=== PATIENT | female | born 1985 ===

== ENCOUNTER 2017-01-19 00:35 | Emergency (ER) | payer OTHER ==
[2017-01-19 00:43] VITALS: BMI 30.9
[2017-01-19 00:54] LABS: RBC URINE < 1 /hpf (0-3); URINE BILIRUBIN NEGATIVE (NEGATIVE); URINE BLOOD NEGATIVE (NEGATIVE); URINE COLOR Straw (YELLOW); URINE GLUCOSE (UA) NORMAL (Normal); URINE KETONE NEGATIVE (NEGATIVE); URINE LEUKOCYTE ESTERASE NEG Leu/uL (Negative); URINE PROTEIN NEGATIVE (NEGATIVE); URINE UROBILINOGEN NORMAL mg/dL (0.2-1.0); WBC URINE < 1 /hpf (0-5)
--- NOTE | 2017-01-19 01:26 | OBDCSUM ---
Datetime: 01/19/2017 01:25 Discharged to, Provider: Home Follow up at, Provider: 1friday Follow up in weeks, Provider: clinic Disch Activity Restrictions: No sexual activity; Nothing in vagina - [place], tampons, douche Discharge Comment, Provider: dc home lbor ins given po hyr f/u in cliic in 1 day Discharge Diagnosis Prov Other: 38+week vb
--- NOTE | 2017-01-19 01:27 | OBHP ---
Datetime: 01/19/2017 01:23 IP Adm Impression: Term, intrauterine IP Chief Complaint Other: vaginal spotting IP Admit Plan: Discharge home Admit Comment, IP Provider: at 38.6 weeks came with vahginal spotting x 2 in the evening, no vb now, no ctxs, lof,+fm obhx 3 x , 1 x sab pmh den med pnv all nkda psh de soch de ve closed ua neg a/p at 38+weeks r/o labor dc home lbor ins given po hyr f/u in cliic in 1 day Pelvic Type - PN: Adequate Extremities - PN: Normal Abdomen - PN: Normal Back - PN: Normal Breast - PN: Normal Lungs - PN: Normal Heart - PN: Normal Thyroid - PN: Normal Neurologic - PN: Normal HEENT - PN: Normal General - PN: Normal FHR - Baseline A Provider: 140 Contraction Comments Provider: occ Vital Signs Provider: Reviewed; Within Normal Limits NICHD Variability Prov Fetus A: Moderate 6-25bpm NICHD Accel Fetus A IP Provider: 15X15 FHR Category Provider Fetus A: Category I Dilatation, Provider: 0 Effacement, Provider: 50 Station, Provider: -3 Genitourinary Exam: Normal DTRs - PN: Normal
[2017-01-19 05:56] VITALS: BP 107/70; PULSE 72
== END 2017-01-19 01:35 | disposition home or self-care (01) ==
LOC: C.EROB 00:35
DX: O26.853 Spotting complicating pregnancy, third trimester (principal); Z3A.38 38 weeks gestation of pregnancy

== ENCOUNTER 2017-01-20 05:45 | Inpatient (IN) | payer MEDICAID, OTHER ==
[2017-01-20] MEDS ORDERED: Penicillin G 5 Million Unit Vial IVPB ONE ×2 (06:38→06:42)
[2017-01-20 06:39] VITALS: BMI 28.3
[2017-01-20] MEDS ORDERED: Lactated Ringer's 1,000 ML IV SCH (06:45)
[2017-01-20] MEDS ORDERED: Oxytocin 20 units in LR 2,000 ML IV ONE (07:02)
[2017-01-20] MEDS ORDERED: Oxycodone/Acetaminophen 5/325 mg Tab PO PRN (07:33)
--- NOTE | 2017-01-20 07:33 | OBADHP ---
Datetime: 01/20/2017 06:53 Admit Comment, IP Provider: 31 y.o. P4, OMI 01/27/17, EGA 39 weeks c/o Ctx - onset 0300 hours and va ginal spotting at that time. (+) AFM; denies LOF. course: NDCA - noted for anemia P OB: x 4: first 3 approx 7 lb, all girls, 2000, 2001, 2002; last one 7lb. 2007, male, 7lb. 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 x 7 years. Lives with and childr en; Unemployed Fam Hx: Mother alive 56 y.o. no med issues. Father alive 59 y.o. HTN, DM. No known fam h/o cance r P.E.: as above. WD in pain with contractions. Awake, alert, oriented to time, person and place. P leasant and cooperative. at her side Assessment: 31 y.o. P4, 39 weeks, near end of Stage 1 of labor. GBS (+). Deceleration c/w labor pr ogress. FHR has recovered - Category 1 tracing. Clinically stable. Plan: 1) Admit 2) NPO 3) IVFs 4) Admission labs 5) Cointinuous EFM 6) Penicillin 7) Anticipate vaginal delivery Pelvic Type - PN: Adequate Extremities - PN: Normal Abdomen - PN: Normal Back - PN: Normal Breast - PN: Not Done Lungs - PN: Normal Heart - PN: Normal Thyroid - PN: Not Done Neurologic - PN: Normal HEENT - PN: Normal General - PN: Normal Presentation-Admit: Vertex FHR - Baseline A Provider: 140 Membranes, Provider: Intact Contraction Comments Provider: 2-5 Comments, ACOG Physical Exam: Abdomen: Obese. Gravid Firm with contractions All other systems reviewed and are negative Gestation - Est Wks by US: 39.0 IP Hx Assessment: The History has been Reviewed and is Current Vital Signs Provider: Reviewed; Within Normal Limits IP Chief Complaint: Uterine contractions NICHD Variability Prov Fetus A: Moderate 6-25bpm FHR Category Provider Fetus A: Category I NICHD Decel Fetus A IP Provider: Variable Dilatation, Provider: 10 Effacement, Provider: 100 Station, Provider: 1 Genitourinary Exam: Normal DTRs - PN: Not Done EGA AdmitDate IP: 39.0 IP Adm Impression: Term, intrauterine ; Active labor IP Admit Plan: Admit to unit; Initiate labor protocol Datetime: 01/19/2017 01:23 IP Chief Complaint Other: vaginal spotting NICHD Accel Fetus A IP Provider: [id number]
--- NOTE | 2017-01-20 07:38 | OBDS ---
DELIVERY PERSONNEL Delivery Doctor: yovani Cardozaulator: Nestor Roca RN MATERNAL INFORMATION Delivery Anesthesia: None Medications in Delivery: pitocin 20 Placenta Cultured: No Maternal Complications: None Provider Comments: Uncomplicated vaginal delivery of live female infant, ALDEN position, weight 7lb 7o z, 's 9/9 after SROM 0702 hours with thick meconium. Cord doubly clamped and cut; handed to packager head in attendance. Cord pH sample obtained and to lab. Spontaneous delivery of placenta -grossly intact; 3 vessel cord. Repair of laceration as above. Hemostasis assured. on mother's abdomen - both in stable condition LABOR SUMMARY EDC: 01/27/2017 00:00 No. Babies in Womb: 1 Attempted: No Labor Anesthesia: None LABOR INFORMATION Onset of Labor: 01/20/2017 04:00 Oxytocin: N/A Group B Beta Strep: Positive Steroids Given: None Reason Steroids Not Administered: Not Applicable MEMBRANES Membranes Rupture Method: Spontaneous Rupture of Membranes: 01/20/2017 06:46 Length of Rupture (hrs): 0.32 Amniotic Fluid Color: Clear Amniotic Fluid Amount: Moderate Amniotic Fluid Odor: Normal STAGES OF LABOR Stage 3 hrs: 0 Stage 3 min: 16 Total Time in Labor hrs: 3 Total Time in Labor min: 21 VAGINAL DELIVERY Episiotomy: None Laceration Extension: First Degree Laceration Type: Perineal Laceration Repair: Yes Laceration Repair Note: 2-0 chromic - routine fashion Initial Vag Sponge Count: 10 Final Vag Sponge Count: 10 Initial Vag Sharps Count: 1 Final Vag Sharps Count: 1 Sponge Count Correct: Yes Sharps Count Correct: Yes BABY A INFORMATION Infant Delivery Date/Time: 01/20/2017 07:05 Method of Delivery: Vaginal Born in Route : No : N/A Forceps: N/A Vacuum Extraction: N/A Shoulder Dystocia : No SHOULDER DYSTOCIA BABY A Infant Delivery Date/Time: 01/20/2017 07:05 PRESENTATION/POSITION BABY A Presentation: Cephalic Cephalic Presentation: Vertex Vertex Position: Right Occipital Anterior PLACENTA INFORMATION BABY A Placenta Delivery Time : 01/20/2017 07:21 Placenta Method of Delivery: Spontaneous Placenta Status: Delivered SCORES BABY A Heart Rate 1 min: >100 bpm Resp Effort 1 min: Good Cry Reflex Irritability 1 min: Cough or Sneeze or Pulls Away Muscle Tone 1 min: Active Motion Color 1 min: Body [place], Extremities Blue Resuscitation Effort 1 min: Tactile Stimulation SCORE 1 MIN: 9 Heart Rate 5 min: >100 bpm Resp Effort 5 min: Good Cry Reflex Irritability 5 min: Cough or Sneeze or Pulls Away Muscle Tone 5 min: Active Motion Color 5 min: Body [place], Extremities Blue SCORE 5 MIN: 9 INFORMATION BABY A Gestational Age at Delivery: 39.0 Gestational Status: Term Infant Outcome : Liveborn Condition : Stable Sex: Female IDENTIFICATION/MEDS BABY A ID Band Number: [id number] ID Band Location: Left Leg; Left Arm Sensor Applied: Yes Sensor Number: [id number] Sensor Location : Cord Clamp WEIGHT/LENGTH BABY A Infant Birthweight (gms): 3375 Weight (lb): 7 Infant Weight (oz): 7 Length Inches: 19.50 Length cms: 49.5 CORD INFORMATION BABY A No. Cord Vessels: 3 Nuchal Cord : N/A Cord Blood Taken: Yes Suction: None; Mouth ASSESSMENT BABY A Infant Complications: None Physical Findings at Delivery: Within Normal Limits Infant Respirations: Appears Normal Svp Of Digital/ALS Called : No Care By: dr escoto Transferred To: Remains with Mother
--- NOTE | 2017-01-20 07:59 | OBPN ---
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 With FOB x 3 years. Unemployed Fam Hx: Mother alive 61 y.o. - no med issues. Father age 50+ - cirrhosis of the liver; h /o EtOH abuse. No knonw fam h/o cancer Datetime: 01/20/2017 06:53 Membranes, Provider: Intact Contraction Comments Provider: 2-5 FHR - Baseline A Provider: 140 Gestation - Est Wks by US: 39.0 Presentation-Admit: Vertex Vital Signs Provider: Reviewed; Within Normal Limits FHR Category Provider Fetus A: Category I NICHD Variability Prov Fetus A: Moderate 6-25bpm Dilatation, Provider: 10 Effacement, Provider: 100 Station, Provider: 1 NICHD Decel Fetus A IP Provider: Variable Datetime: 01/19/2017 01:23 NICHD Accel Fetus A IP Provider: [id number]
[2017-01-20 08:26] LABS: BASO % 0.1 % (0.0-2.0); LYMPH # 1.7 K/uL (1.0-4.3); LYMPH % 10.6 % (20.0-40.0); MEAN CELL VOLUME 89.9 fL (81.0-99.0); MEAN CORPUSCULAR HEMOGLOBIN 30.4 pg (27.0-31.0); MEAN CORPUSCULAR HGB CONC 33.8 g/dL (33.0-37.0); MEAN PLATELET VOLUME 9.7 fL (7.2-11.7); MONO # 0.8 K/uL (0.0-0.8); MONO % 5.3 % (0.0-10.0); RED CELL DISTRIBUTION WIDTH 16.9 % (11.5-14.5); WHITE BLOOD COUNT 15.6 K/uL (4.8-10.8)
[2017-01-20 08:41] LABS: RBC URINE 2349 /hpf (0-3); URINE BACTERIA RARE (<OCC); URINE BILIRUBIN NEGATIVE (NEGATIVE); URINE BLOOD 3+ (NEGATIVE); URINE COLOR Amber (YELLOW); URINE GLUCOSE (UA) NORMAL (Normal); URINE KETONE NEGATIVE (NEGATIVE); URINE LEUKOCYTE ESTERASE 2+ Leu/uL (Negative); URINE PROTEIN 2+ mg/dL (NEGATIVE); URINE UROBILINOGEN NORMAL mg/dL (0.2-1.0); WBC URINE 58 /hpf (0-5)
[2017-01-20 09:02] LABS: ALB/GLOB RATIO 0.9 (1.0-2.1); ALKALINE PHOSPHATASE 212 U/L (38-126); ALT/SGPT 30 U/L (9-52); AST/SGOT 22 U/L (14-36); BILIRUBIN,TOTAL 0.5 mg/dL (0.2-1.3); BLOOD UREA NITROGEN 7 mg/dL (7-17); CALCIUM 8.5 mg/dl (8.6-10.4); CARBON DIOXIDE 20 mmol/L (22-30); CHLORIDE 107 mmol/L (98-107); GFR AFRICAN-AMERICAN > 60; GLUCOSE,RANDOM 86 mg/dL (65-105); POTASSIUM 3.3 mmol/L (3.6-5.2); SODIUM 136 mmol/L (132-148); TOTAL PROTEIN 7.8 g/dL (6.3-8.3)
[2017-01-20] MEDS: Benzocaine/Menthol 20%-0.5% Topical Spray (60 ml) TOP PRN (09:41)
[2017-01-21 08:15] LABS: BASO % 0.1 % (0.0-2.0); EOS % 0.3 % (0.0-4.0); HEMATOCRIT 33.5 % (34.0-47.0); LYMPH # 2.1 K/uL (1.0-4.3); LYMPH % 22.2 % (20.0-40.0); MEAN CELL VOLUME 89.4 fL (81.0-99.0); MEAN CORPUSCULAR HEMOGLOBIN 30.6 pg (27.0-31.0); MEAN CORPUSCULAR HGB CONC 34.2 g/dL (33.0-37.0); MEAN PLATELET VOLUME 9.2 fL (7.2-11.7); MONO # 0.7 K/uL (0.0-0.8); MONO % 7.5 % (0.0-10.0); NRBC % 0.1 % (0.0-2.0); WHITE BLOOD COUNT 9.7 K/uL (4.8-10.8)
[2017-01-21] MEDS ORDERED: Influenza Vaccine 60 mcg/0.5 mL SYR (4YR UP) IM ONE (08:17)
--- NOTE | 2017-01-21 19:56 | OBPPN ---
Datetime: 01/21/2017 11:07 PP Pain Prov: Within normal limits PP Nausea Prov: Denies PP Flatus Prov: No PP BM Prov: No PP Heart Prov: Normal PP Lungs Prov: Normal PP Abdomen/Uterus Prov: Normal PP Lochia Prov: Normal PP CVA Tenderness Prov: Normal PP Extremities Prov: Normal PP Progress Prov: Normal PP Impression Prov: Normal progression PP Plan Prov: Continue present management PP Progress Note Prov: Patient seen and examined at bedside. Per nursing no acute events overnight. Patient is doing well, pain is controlled. Lochia is moderate. Ambulating and tolerating diet. Urinat ing without difficulty. Denies passing flatus or BM. Breast and bottle feeding. Denies headaches, diz ziness, cp, palpitations, sob, urinary symptoms. VS: 90/56 66 98.1 Gen: AAOx3, NAD Abd: Soft, fundus firm below umbilicus Ext: No clubbing, cyanosis, edema; no calf tenderness Labs: 15.6>12.2/36.0<189 9.7>11.5/33.5<191 O positive Rubella immune A/P: 31 year old at 39w0d s/p PPD#1 -Stable, afebrile -Pain control - motrin prn -Encourage ambulation and hydration -Encourage breast feeding -Continue routine care -Anticipate d/c home tomorrow -Plan d/w attending Chantell Jamil DO PGY-1 Patient examined.agree with resident exam, assessment and plan Vital Signs Provider PP: Reviewed
--- NOTE | 2017-01-22 08:53 | OBPPN ---
Datetime: 01/22/2017 08:50 PP Pain Prov: Within normal limits PP Nausea Prov: Denies PP Flatus Prov: Yes PP BM Prov: No PP Breasts Prov: Normal PP Heart Prov: Normal PP Lungs Prov: Normal PP Abdomen/Uterus Prov: Normal PP Lochia Prov: Normal PP CVA Tenderness Prov: Normal PP Extremities Prov: Normal PP Progress Prov: Normal PP Impression Prov: Normal progression PP Plan Prov: Continue present management PP Progress Note Prov: s: no c/o. denies perineal pain i: s/p doing well p: d/c home perineal care continue pnv benefits of reinforced good nutrition IP PP Procedures: None
[2017-01-22 08:54] VITALS: PULSE 66; RESP 18; O2SAT 98
--- NOTE | 2017-01-22 08:56 | OBDCSUM ---
Datetime: 01/22/2017 08:29 Discharged to, Provider: Home Follow up at, Provider: ROSY Disch Instr Activity: Normal activity; May Shower Disch Instr Diet: Regular Discharge Diet restrict Prov: none Discharge Instructions, Provider: Routine instructions given Discharge Diagnosis, Provider: Term Delivered Discharge Time: 01/22/2017 11:00 Follow up in weeks, Provider: 6 weeks Disch Referrals: None Discharge Instruct Comment, Prov: pp Disch Activity Restrictions: No sexual activity; Nothing in vagina - [employer], tampons, douche Discharge Comment, Provider: see pp note Contraception after Delivery: Undecided
[2017-01-22] MEDS: Benzocaine/Menthol 20%-0.5% Topical Spray (60 ml) TOP PRN (09:00)
[2017-01-22 17:43] VITALS: BP 95/56; TEMP 98.3
== END 2017-01-22 13:43 | disposition home or self-care (01) | DRG 373 ==
LOC: C.EROB 05:45 → C.4D 06:39 → C.4M 09:00
PROVIDERS: ADMIT Obstetrics & Gynecology; ATTEND Obstetrics & Gynecology
PROC: 10E0XZZ Delivery of Products of Conception, External Approach (ICD-10-PCS; principal; 2017-01-20)
PROC: 0HQ9XZZ Repair Perineum Skin, External Approach (ICD-10-PCS; 2017-01-20)
DX: O99.02 Anemia complicating childbirth (principal); D64.9 Anemia, unspecified; Z37.0 Single live birth; O99.824 Streptococcus B carrier state complicating childbirth; O70.0 First degree perineal laceration during delivery; Z3A.39 39 weeks gestation of pregnancy; Z82.49 Family history of ischemic heart disease and other diseases of the circulatory system; Z83.3 Family history of diabetes mellitus